=== PATIENT | female | born 1945 | race African-American/Black ===

== ENCOUNTER 2019-09-25 09:34 | Emergency (ER) | payer MEDICARE | END 2019-09-25 10:30 | disposition home or self-care (01) | LOC: MADERS 09:34 | DX: J10.1 Influenza due to other identified influenza virus with other respiratory manifestations (principal); E78.5 Hyperlipidemia, unspecified; E78.00 Pure hypercholesterolemia, unspecified; I10 Essential (primary) hypertension | CPT/HCPCS: 87804; 99283 ==

== ENCOUNTER 2020-12-20 01:01 | Emergency (ER) | payer MEDICARE ==
[2020-12-20] MEDS ORDERED: EPINEPHrine 1 MG/ML AMP ONE (01:09)
[2020-12-20] MEDS ORDERED: Dexamethasone 10 MG/ML VIAL ONE ×2 (01:11→06:13)
[2020-12-20] MEDS ORDERED: diphenhydrAMINE 50 MG/ML VIAL ONE ×2 (01:11→06:14)
[2020-12-20] MEDS ORDERED: Famotidine In NaCl 20 mg/50 ml Premix Bag ONE (01:51)
== END 2020-12-20 06:29 | disposition home or self-care (01) ==
LOC: MADERS 01:01
DX: T78.1XXA Other adverse food reactions, not elsewhere classified, initial encounter (principal); E11.9 Type 2 diabetes mellitus without complications; E78.5 Hyperlipidemia, unspecified; I10 Essential (primary) hypertension; E78.00 Pure hypercholesterolemia, unspecified; Z79.899 Other long term (current) drug therapy; Z79.84 Long term (current) use of oral hypoglycemic drugs
CPT/HCPCS: 96374; 96375; 96376; J0171; J1100; J1200

== ENCOUNTER 2021-11-25 21:21 | Emergency (ER) | payer MEDICARE ==
[2021-11-25 22:16] LABS: Band 1 % (5-11); Burr Cells SLIGHT = 2-5 cells (100X) (0-1/hpf); Eosinophils 2 % (0-10); Hemoglobin 12.3 g/dL (12.0-16.0); Lymphocytes 25 % (21-51); MDiff Complete? YES; Mean Corpuscular HGB CONC 32.9 g/dL (32.0-36.0); Mean Corpuscular Hemoglobin 25.1 pg (27.0-31.0); Mean Corpuscular Volume 76.4 fL (78.0-98.0); Mean Platelet Volume 12.9 fL (7.4-10.4); Monocytes 4 % (0-10); Neutrophil 68 % (42-75); Platelet Count 210 thou/uL (130-400); Platelet Morphology Comment Appears Adequate; RBC Distribution Width 14.6 % (11.5-14.5); Red Blood Cell (RBC) Count 4.89 mill/uL (4.20-5.40); White Blood Cell (WBC) Count 8.8 thou/uL (4.8-10.8)
[2021-11-25 22:18] LABS: ALT (SGPT) 16 U/L (8-55); AST (SGOT) 29 U/L (5-34); Albumin 3.9 g/dL (3.4-4.8); Alkaline Phosphatase 32 U/L (40-110); Anion Gap 15 mmol/L (10-20); BUN (Urea Nitrogen) 10 mg/dL (9.8-20.1); Bilirubin, Total 0.6 mg/dL (0.2-1.2); Calc. Creatinine Clearance 0 mL/min (70-130); Calcium 9.7 mg/dL (7.8-10.44); Carbon Dioxide 23 mmol/L (23-31); Chloride 104 mmol/L (98-107); Globulin 3.8 g/dL (2.4-3.5); Glucose 128 mg/dL (83-110); Lipase 63 U/L (8-78); Potassium 3.7 mmol/L (3.5-5.1); Protein, Total 7.7 g/dL (5.8-8.1); Sodium 138 mmol/L (136-145)
[2021-11-25 22:30] LABS: Magnesium 2.1 mg/dL (1.6-2.6)
== END 2021-11-25 23:39 | disposition short-term general hospital (02) ==
LOC: MADERS 21:21
DX: R79.1 Abnormal coagulation profile (principal); R13.10 Dysphagia, unspecified; R60.0 Localized edema; E11.9 Type 2 diabetes mellitus without complications; I10 Essential (primary) hypertension; E78.2 Mixed hyperlipidemia; Z79.84 Long term (current) use of oral hypoglycemic drugs; Z79.899 Other long term (current) drug therapy
CPT/HCPCS: 36415; 71045; 80053; 83690; 83735; 83880; 84443; 84484; 85025; 85379; 93005; 94760

== ENCOUNTER 2021-11-30 15:04 | Emergency (ER) | payer MEDICARE ==
[2021-11-30] MEDS ORDERED: Acetaminophen 500 MG TAB ONE (16:25)
== END 2021-11-30 16:32 | disposition home or self-care (01) ==
LOC: MADERS 15:04
DX: M25.521 Pain in right elbow (principal); E11.9 Type 2 diabetes mellitus without complications; I10 Essential (primary) hypertension; E78.5 Hyperlipidemia, unspecified